=== PATIENT | female | born 1945 | race Caucasian/White ===

== ENCOUNTER 2017-04-19 18:25 | Observation (INO) | payer OTHER ==
[2017-04-19 18:37] VITALS: BMI 39.9
[2017-04-19] MEDS ORDERED: ASPIRIN 81 MG CHEWABLE TABLETS PO ONE ×2 (18:45→18:59)
--- NOTE | 2017-04-19 18:45 | PDOC ---
History of Present Illness - General Chief Complaint: Chest Pain Stated Complaint: CHEST PAIN Past History - Past Medical History Allergies/Adverse Reactions: Allergies Allergy/AdvReac Type Severity Reaction Status Date / Time No Known Allergies Allergy Verified 04/19/17 18:33 Home Medications: Ambulatory Orders Atorvastatin Ca [Lipitor] 80 mg PO DAILY 09/20/12 Metoprolol Tartrate [Lopressor -] 50 mg PO DAILY 09/20/12 Zolpidem Tartrate [Ambien] 10 mg PO HS 09/20/12 Aspirin [Aspirin EC] 81 mg PO DAILY 04/25/15 Gabapentin 300 mg PO DAILY 04/25/15 Hydrocodone/Acetaminophen [Vicodin 5-300 mg Tablet] 1 each PO PRN 04/25/15 Clopidogrel Bisulfate [Plavix -] 75 mg PO DAILY 12/31/15 Cancer: Yes (ANGINA) Cardiac Disorders: Yes (ANGINA) HTN: Yes Hypercholesterolemia: Yes - Surgical History Cardiac Surgery: Yes (CABG X 3, card stent) Orthopedic Surgery: (EUGENIO KNEE REPLACEMENT) - Immunization History Immunization Up to Date: Yes - Psycho/Social/Smoking Cessation Hx Anxiety: No Suicidal Ideation: No Smoking Status: No Smoking History: Never smoked Have you smoked in the past 12 months: No Number of Cigarettes Smoked Daily: 0 Information on smoking cessation initiated: No Hx Alcohol Use: No Drug/Substance Use Hx: No Substance Use Type: None Hx Substance Use Treatment: No *Physical Exam - Vital Signs Last Vital Signs Temp Pulse Resp BP Pulse Ox 98.0 F 59 L 18 177/87 100 04/19/17 18:34 04/19/17 18:34 04/19/17 18:34 04/19/17 18:34 04/19/17 18:34
--- NOTE | 2017-04-19 19:04 | PDOC ---
History of Present Illness <ShlomoWendy Jauqi - Last Filed: 04/19/17 23:00> - General History Source: Patient Exam Limitations: No Limitations <Leslie Lakhani - Last Filed: 04/19/17 23:18> - General Chief Complaint: Chest Pain Stated Complaint: CHEST PAIN Time Seen by Provider: 04/19/17 18:54 - History of Present Illness Initial Comments: 04/19/17 19:02 Patient is a 71 y.o. female with a PMH of CAD (s/p stent x2) and HTN who presents to our facility c/o a 4 day h/o intermittent, sharp chest pain that starts in her left arm and radiates across her trunk. Patient states the pain occurs daily at approximately 1:30 p.m. and is self-resolving. Patient denies any associated shortness of breath, diaphoresis, nausea or vomiting. (Leslie Lakhani) Past History <ShlomoMarcbillie Nails - Last Filed: 04/19/17 23:00> - Past Medical History Cancer: Yes (ANGINA) Cardiac Disorders: Yes (ANGINA) HTN: Yes Hypercholesterolemia: Yes - Surgical History Cardiac Surgery: Yes (CABG X 3, card stent) Orthopedic Surgery: (EUGENIO KNEE REPLACEMENT) - Immunization History Immunization Up to Date: Yes - Psycho/Social/Smoking Cessation Hx Anxiety: No Suicidal Ideation: No Smoking Status: No Smoking History: Never smoked Have you smoked in the past 12 months: No Number of Cigarettes Smoked Daily: 0 Information on smoking cessation initiated: No Hx Alcohol Use: No Drug/Substance Use Hx: No Substance Use Type: None Hx Substance Use Treatment: No <Leslie Lakhani - Last Filed: 04/19/17 23:18> - Past Medical History Allergies/Adverse Reactions: Allergies Allergy/AdvReac Type Severity Reaction Status Date / Time No Known Allergies Allergy Verified 04/19/17 18:33 Home Medications: Ambulatory Orders Atorvastatin Ca [Lipitor] 80 mg PO DAILY 09/20/12 Metoprolol Tartrate [Lopressor -] 50 mg PO BID 09/20/12 Zolpidem Tartrate [Ambien] 10 mg PO HS 09/20/12 Aspirin [Aspirin EC] 81 mg PO DAILY 04/25/15 Gabapentin 300 mg PO DAILY 04/25/15 Hydrocodone/Acetaminophen [Vicodin 5-300 mg Tablet] 1 each PO PRN 04/25/15 Clopidogrel Bisulfate [Plavix -] 75 mg PO DAILY 12/31/15 Review of Systems - Review of Systems Constitutional: Yes: Other (No fevers, chills, diaphoresis, unexplained weight loss) HEENTM: Yes: Other (No visual changes, hearing loss, tinnitus, or sore throat) Respiratory: Yes: Other (No cough, shortness of breath, hemoptysis or wheezing) Cardiac (ROS): Yes: Other ABD/GI: Yes: Other (No abdominal pain, constipation, diarrhea, rectal bleed) : Yes: Other (No dysuria, increased frequency, hematuria) Musculoskeletal: Yes: Other (No muscle pain, weakness, back pain, gout) Psychiatric: Yes: Other (No anxiety, depression, suidical ideation) <Leslie Lakhani - Last Filed: 04/19/17 23:18> - Vital Signs Last Vital Signs Temp Pulse Resp BP Pulse Ox 98.0 F 53 L 18 143/73 99 04/19/17 18:34 04/19/17 20:37 04/19/17 20:37 04/19/17 20:37 04/19/17 20:37 ED Treatment Course - LABORATORY CBC & Chemistry Diagram: 04/19/17 18:51 04/19/17 18:51 <Wendy Keenan - Last Filed: 04/19/17 23:00> - LABORATORY CBC & Chemistry Diagram: 04/19/17 18:51 04/19/17 18:51 <Leslie Lakhani - Last Filed: 04/19/17 23:18> - ADDITIONAL ORDERS Additional order review: Laboratory Results 04/19/17 04/19/17 04/19/17 18:51 18:51 18:51 INR Sodium 141 Potassium 3.5 Chloride 107 Carbon Dioxide 26 Anion Gap 8 BUN 22 H D Creatinine 0.9 D Creat Clearance w eGFR > 60 Random Glucose 85 D Calcium 8.9 Magnesium 2.0 Total Bilirubin 0.6 AST 17 D ALT 19 D Alkaline Phosphatase 86 D Creatine Kinase 92 Troponin I < 0.02 B-Natriuretic Peptide 250.93 H Total Protein 7.2 Albumin 3.8 Urine Color Straw Urine Appearance Clear Urine pH 6.0 Urine Protein Negative Urine Glucose (UA) Negative Urine Ketones Negative Urine Blood 2+ H Urine Nitrite Negative Urine Bilirubin Negative Urine Urobilinogen Negative Ur Leukocyte Esterase Trace H Urine RBC 2 Urine WBC 2 Ur Epithelial Cells Rare Urine Mucus Rare 04/19/17 18:51 INR 1.11 Sodium Potassium Chloride Carbon Dioxide Anion Gap BUN Creatinine Creat Clearance w eGFR Random Glucose Calcium Magnesium Total Bilirubin AST ALT Alkaline Phosphatase Creatine Kinase Troponin I B-Natriuretic Peptide Total Protein Albumin Urine Color Urine Appearance Urine pH Urine Protein Urine Glucose (UA) Urine Ketones Urine Blood Urine Nitrite Urine Bilirubin Urine Urobilinogen Ur Leukocyte Esterase Urine RBC Urine WBC Ur Epithelial Cells Urine Mucus 04/19/17 18:51 RBC 5.03 MCV 81.9 MCHC 33.3 RDW 13.9 MPV 7.8 Neutrophils % 67.9 Lymphocytes % 21.8 Monocytes % 8.3 Eosinophils % 1.3 Basophils % 0.7 - Medications Given in the ED: ED Medications Discontinued Medications Generic Name Dose Route Start Last Admin Trade Name Freq PRN Reason Stop Dose Admin Aspirin 162 mg 04/19/17 18:45 04/19/17 19:22 Asa - PO 04/19/17 18:46 162 mg ONCE ONE Administration Aspirin 162 mg 04/19/17 18:59 04/19/17 19:22 Asa - PO 04/19/17 19:00 Not Given ONCE ONE Medical Decision Making <Wendy Keenan - Last Filed: 04/19/17 23:00> <Leslie Lakhani - Last Filed: 04/19/17 23:18> - Medical Decision Making 04/19/17 22:45 Patient's EKG showed Sinus Bradycardia (HR 59 BPM) and Troponin was (-) x1. As patient had a recent positive stress test, a decision was made to admit to patient for telemetry on the observation inpatient medicine floor. (Leslie Lakhani) *DC/Admit/Observation/Transfer - Discharge Dispostion Admit: Yes <Wendy Keenan - Last Filed: 04/19/17 23:00> - Discharge Dispostion Admit: Yes <Leslie Lakhani - Last Filed: 04/19/17 23:18> Diagnosis at time of Disposition: Chest pain Qualifiers: Chest pain type: unspecified Qualified Code(s): R07.9 - Chest pain, unspecified - Discharge Dispostion Condition at time of disposition: Good Decision to Admit order Date/Time: Decision to Admit Order Category Date Time Status Decision to Admit to Hospital Routine Admission 04/19/17 21:03 Active - Referrals - Attestations Physician Attestion: 04/19/17 21:03 I, Dr. Leslie Lakhani, attest that this document has been prepared under my direction and personally reviewed by me in its entirety. I further attest, that it accurately reflects all work, treatment, procedures and medical decision -making performed by me. (Leslie Lakhani)
[2017-04-19] MEDS ORDERED: ASPIRIN 81 MG CHEWABLE TABLETS ONE (19:20)
[2017-04-19 19:21] LABS: BASOPHIL 0.7 % (0-2.0); EOSINOPHIL 1.3 % (0-4.5); MCH 27.3 pg (25.7-33.7); MCHC 33.3 g/dl (32.0-36.0); MEAN CELL VOLUME 81.9 fl (80-96); MEAN PLT VOLUME 7.8 fl (7.5-11.1); NEUTROPHILS 67.9 % (42.8-82.8); PLATELET COUNT 222 K/MM3 (134-434); RDW 13.9 % (11.6-15.6)
[2017-04-19 19:43] LABS: INR 1.11 (0.82-1.09); PROTHROMBIN TIME (PATIENT) 12.2 SEC (9.98-11.88)
[2017-04-19 19:45] LABS: ALBUMIN 3.8 g/dl (3.4-5.0); ANION GAP 8 (8-16); CALCIUM 8.9 mg/dL (8.5-10.1); CO2 26 mmol/L (21-32); CREATININE 0.9 mg/dL (0.55-1.02); GLUCOSE,RANDOM 85 mg/dL (74-106); SGOT/AST 17 U/L (15-37)
[2017-04-19 19:50] LABS: ALK PHOS 86 U/L (45-117); BILIRUBIN,TOTAL 0.6 mg/dL (0.2-1.0); SGPT/ALT 19 U/L (12-78); TOT PROT 7.2 g/dl (6.4-8.2); TROPONIN I < 0.02 ng/ml (0.00-0.05)
--- NOTE | 2017-04-19 21:43 | PN ---
Teaching Attending Note Name of Resident: Purvi Higuera ATTENDING PHYSICIAN STATEMENT I saw and evaluated the patient. I reviewed the resident's note and discussed the case with the resident. I agree with the resident's findings and plan as documented. SUBJECTIVE: 71 yo F with Pmhx of CAD s/p CABG, HTN obesity, and etoh abuse, who presents with chest pain which occurred at 1:30 p.m and went away in a few seconds. States this pain is NOT her anginal equivlent. Chest pain was midsternal and sharp and went away. Non-Radiating. No diaphoresis, nausea or vomiting. No current chest pain, pressure or shortness of breath. OBJECTIVE: Physical: VS: Vital Signs Period Temp Pulse Resp BP Sys/Espinal Pulse Ox Last 24 Hr 98.0 F 53-59 18-18 143-177/73-87 99-100 GEN: NAD HEENT:NCAT, PERRL CARD: RRR S1, S2 RESP: CTAB ABD: BSX4, NTD to palpation EXT: - C/C/E CBCD WBC 10.0 K/mm3 (4.0-10.0) 04/19/17 18:51 RBC 5.03 M/mm3 (3.60-5.2) 04/19/17 18:51 Hgb 13.7 GM/dL (10.7-15.3) 04/19/17 18:51 Hct 41.3 % (32.4-45.2) 04/19/17 18:51 MCV 81.9 fl (80-96) 04/19/17 18:51 MCHC 33.3 g/dl (32.0-36.0) 04/19/17 18:51 RDW 13.9 % (11.6-15.6) 04/19/17 18:51 Plt Count 222 K/MM3 (134-434) 04/19/17 18:51 MPV 7.8 fl (7.5-11.1) 04/19/17 18:51 CMP Sodium 141 mmol/L (136-145) 04/19/17 18:51 Potassium 3.5 mmol/L (3.5-5.1) 04/19/17 18:51 Chloride 107 mmol/L (98-107) 04/19/17 18:51 Carbon Dioxide 26 mmol/L (21-32) 04/19/17 18:51 Anion Gap 8 (8-16) 04/19/17 18:51 BUN 22 mg/dL (7-18) H D 04/19/17 18:51 Creatinine 0.9 mg/dL (0.55-1.02) D 04/19/17 18:51 Creat Clearance w eGFR > 60 (>60) 04/19/17 18:51 Random Glucose 85 mg/dL (74-106) D 04/19/17 18:51 Calcium 8.9 mg/dL (8.5-10.1) 04/19/17 18:51 Total Bilirubin 0.6 mg/dL (0.2-1.0) 04/19/17 18:51 AST 17 U/L (15-37) D 04/19/17 18:51 ALT 19 U/L (12-78) D 04/19/17 18:51 Alkaline Phosphatase 86 U/L (45-117) D 04/19/17 18:51 Total Protein 7.2 g/dl (6.4-8.2) 04/19/17 18:51 Albumin 3.8 g/dl (3.4-5.0) 04/19/17 18:51 CARDIAC ENZYMES Creatine Kinase 92 IU/L (26-192) 04/19/17 18:51 Troponin I < 0.02 ng/ml (0.00-0.05) 04/19/17 18:51 EKG:S agnie 59 CXR: HEART SCORE: 4 ASSESSMENT AND PLAN: 71 yo F with Pmhx of CAD s/p CABG, HTN obesity, and etoh abuse who presents with chest pain 1.) Chest Pain - Atypical - Trend Trop/EKG - Monitor on tele - FU CXR - Heart 4 - cardio consult - C/W home meds 2.) CAD S/P CABG - C/W home meds 3.) HTN - C.w home meds 4.) Dvt Ppx - Low Risk - SCD Place in observation Tele
--- NOTE | 2017-04-19 22:26 | HP ---
HISTORY OF PRESENT ILLNESS: Patient is a 71 year old female with a PMHx of CAD s/p stent x2 and HTN who reports a 3 day history of intermittent left sided chest pain radiating to the midsternal described as sharp in nature. Patient reports the pain is daily and occurs everyday before 14:00 and usually self resolves within thirty minutes. Denies any association PO intake. Otherwise, patient denies fever, chills, nausea, vomiting, shortness of breath, diaphoresis, abdominal pain, dysuria, hematuria. PHYSICAL EXAMINATION Vital Signs - 24 hr 04/19/17 04/19/17 18:34 20:37 Temperature 98.0 F Pulse Rate 59 L Pulse Rate [ 53 L Apical] Respiratory 18 18 Rate Blood Pressure 177/87 Blood Pressure 143/73 [Left Arm] O2 Sat by Pulse 100 99 Oximetry (%) GENERAL: Awake, alert, and fully oriented, in no acute distress. EYES: Sclera anicteric, conjunctiva clear. EARS, NOSE, THROAT: Oropharynx clear without exudates. Moist mucous membranes. NECK: Normal range of motion, supple without lymphadenopathy, JVD, or masses. LUNGS: Breath sounds equal, clear to auscultation bilaterally. No wheezes, and no crackles. No accessory muscle use. HEART: Bradycardic and regular rhythm, normal S1 and S2 without murmur, rub or gallop. ABDOMEN: Soft, nontender, not distended, normoactive bowel sounds, no guarding, no rebound, no masses. No hepatomegaly or splenomegaly. LOWER EXTREMITIES: No peripheral edema. Laboratory Results - last 24 hr 04/19/17 04/19/17 04/19/17 18:51 18:51 18:51 WBC 10.0 RBC 5.03 Hgb 13.7 Hct 41.3 MCV 81.9 MCH 27.3 MCHC 33.3 RDW 13.9 Plt Count 222 MPV 7.8 Neutrophils % 67.9 Lymphocytes % 21.8 Monocytes % 8.3 Eosinophils % 1.3 Basophils % 0.7 INR 1.11 Sodium 141 Potassium 3.5 Chloride 107 Carbon Dioxide 26 Anion Gap 8 BUN 22 H D Creatinine 0.9 D Creat Clearance w eGFR > 60 Random Glucose 85 D Calcium 8.9 Magnesium 2.0 Total Bilirubin 0.6 AST 17 D ALT 19 D Alkaline Phosphatase 86 D Creatine Kinase 92 Troponin I < 0.02 B-Natriuretic Peptide Total Protein 7.2 Albumin 3.8 ASSESSMENT/PLAN: Patient is a 71 year old female with a PMHx of CAD s/p stents x2, HTN, and obesity who presents for sharp chest pain the last 4 days. Patient was admitted for further monitoring and management. Atypical Chest Pain -HEART SCORE: 4 -Troponin negative x1, continue to trend with repeat EKG -EKG showed no ST elevations or changes. -Prior positive stress test 4 months ago -Continue Plavix, ASA, Statin, and Metoprolol -Cardiology consult placed CAD S/P stents x1- Continue home medications HTN- Controlled. Continue current home medications Prophylaxis- SCD's for DVT prophylaxis Disposition- OBS telemetry. Cardiac consult placed Case discussed with medical team and attending. Full H&P to follow. Visit type - Emergency Visit Emergency Visit: Yes ED Registration Date: 04/19/17 Care time: The patient presented to the Emergency Department on the above date and was hospitalized for further evaluation of their emergent condition. - New Patient This patient is new to me today: Yes Date on this admission: 04/20/17 - Critical Care Critical Care patient: No
[2017-04-19 22:37] LABS: URINE APPEARANCE CLEAR; URINE BILIRUBIN NEGATIVE (NEGATIVE); URINE COLOR STRAW; URINE GLUCOSE (UA) NEGATIVE (NEGATIVE); URINE KETONE NEGATIVE (NEGATIVE); URINE NITRITE NEGATIVE (NEGATIVE); URINE PROTEIN NEGATIVE (NEGATIVE); URINE UROBILINOGEN NEGATIVE E.U./dl (0.2-1.0)
[2017-04-19 22:39] LABS: URINE BLOOD 2+ (NEGATIVE); URINE LEUK ESTERASE TRACE (NEGATIVE)
--- NOTE | 2017-04-19 22:39 | PDOC ---
Attending Attestation - Resident Resident Name: Leslie Lakhani - HPI HPI: 04/19/17 22:39 71 yo female with chest pain - Physicial Exam PE: 04/19/17 22:39 [id number] 71 yo female lungs cta b/l cvr [id number] abd soft,no reobound,no guarding ext from neuro axox3 - Medical Decision Making 04/19/17 22:40 71 yo female with chest pain and h/i CAD,cardiac stent on plavix and aspirin. admitted to tele obs
[2017-04-19 22:40] LABS: URINE MUCUS RARE; URINE RBC 2 /hpf (0-3); URINE WBC 2 /hpf (3-5)
[2017-04-19] MEDS ORDERED: ZOLPIDEM TARTRATE 5 MG TABLET PO PRN (23:02)
--- NOTE | 2017-04-19 23:36 | HP ---
CHIEF COMPLAINT:Chest pain start in the left side of the chest and radiated to med sternal area. PCP: HISTORY OF PRESENT ILLNESS: 71 Yo female, with PMH of CAD, S/p CABG(Nov 2014)on Aspirin and plavix , HTN, HLD,Obesity,Etoch abuse, Arthritis who presented to the ED today with 3 days H/O sever sharp shooting chest pain, 9/10 in intensity. the pain starts in the left side of the chest and radiate to med sternal area, last less than a minute. The pain improved with deep breathing and Nitroglycerine 0.4 mg Sublingual,and not related to her position.she felt very week during the episode.She never had similiar pain before and it is different from the angina pain she had in 2014. she denies any orthopnea or dyspnia on excertion.She denies any cough, palpitations, headache, blurry vision, diaphoresis, N/V/D/C, she reports some acid reflux but she denies any urinary symptoms. ER course was notable for: (1)EKG showed Sinus Bradycardia (HR 59 BPM) and Troponin was (-) x1 (2)Aspirin, plavix, O2 2L, Statin. (3)CXR was ordered Recent Travel:NO PAST MEDICAL HISTORY: CAD, S/p CABG in 2014, HLD, HLD, Arthritis. PAST SURGICAL HISTORY: both knee replacement. Social History: Smoking:None Alcohol:None Drugs: None Family History:significant for HTN, heart diseases in both parents. Allergies No Known Allergies Allergy (Verified 04/19/17 18:33) HOME MEDICATIONS: Home Medications Medication Instructions Recorded Atorvastatin Ca [Lipitor] 80 mg PO DAILY 09/20/12 Metoprolol Tartrate [Lopressor -] 50 mg PO BID 09/20/12 Zolpidem Tartrate [Ambien] 10 mg PO HS 09/20/12 Aspirin [Aspirin EC] 81 mg PO DAILY 04/25/15 Gabapentin 300 mg PO DAILY 04/25/15 Hydrocodone/Acetaminophen [Vicodin 1 each PO PRN 04/25/15 5-300 mg Tablet] Clopidogrel Bisulfate [Plavix -] 75 mg PO DAILY 12/31/15 REVIEW OF SYSTEMS CONSTITUTIONAL: Absent:NO fever, chills, diaphoresis, +generalized weakness during pain episode , malaise, loss of appetite, weight change HEENT: Absent: NO rhinorrhea, nasal congestion, throat pain, throat swelling, difficulty swallowing, mouth swelling, ear pain, eye pain, visual changes CARDIOVASCULAR: Absent: + chest pain, syncope, palpitations, irregular heart rate, lightheadedness, trace peripheral edema RESPIRATORY: Absent:NO cough, shortness of breath, dyspnea with exertion, orthopnea, wheezing , stridor, hemoptysis GASTROINTESTINAL: Absent: abdominal pain, abdominal distension, nausea, vomiting, diarrhea, constipation, melena, hematochezia GENITOURINARY: Absent: dysuria, frequency, urgency, hesitancy, hematuria, flank pain, genital pain MUSCULOSKELETAL: Absent: myalgia, +arthralgia hands and legs, joint swelling, back pain, neck pain SKIN: Absent: rash, itching, pallor HEMATOLOGIC/IMMUNOLOGIC: Absent: easy bleeding, easy bruising, lymphadenopathy, frequent infections ENDOCRINE: Absent: unexplained weight gain, unexplained weight loss, heat intolerance, cold intolerance NEUROLOGIC: Absent: headache, focal weakness or paresthesias, dizziness, seizure, mental status changes, bladder or bowel incontinence PSYCHIATRIC: Absent: anxiety, depression, suicidal or homicidal ideation, hallucinations. PHYSICAL EXAMINATION Vital Signs - 24 hr 04/19/17 04/19/17 18:34 20:37 Temperature 98.0 F Pulse Rate 59 L Pulse Rate [ 53 L Apical] Respiratory 18 18 Rate Blood Pressure 177/87 Blood Pressure 143/73 [Left Arm] O2 Sat by Pulse 100 99 Oximetry (%) GENERAL: Awake, alert, and fully oriented, in no acute distress. HEAD: Normal with no signs of trauma. EYES: Pupils equal, round and reactive to light, extraocular movements intact, sclera anicteric, conjunctiva clear. No lid lag. EARS, NOSE, THROAT: Ears normal, nares patent, oropharynx clear without exudates. Moist mucous membranes. NECK: Normal range of motion, supple without lymphadenopathy, JVD, or masses. LUNGS: Breath sounds equal, clear to auscultation bilaterally. No wheezes, and no crackles. No accessory muscle use. HEART: Regular rate and rhythm, normal S1 and S2 without murmur, rub or gallop. ABDOMEN: Soft, nontender, not distended, normoactive bowel sounds, no guarding, no rebound, no masses. No hepatomegaly or splenomegaly. MUSCULOSKELETAL: Normal range of motion at all joints. bony deformities and tenderness in hands fingers and toes. No CVA tenderness. UPPER EXTREMITIES: 2+ pulses, warm, well-perfused. No cyanosis. No clubbing. Trace peripheral edema. LOWER EXTREMITIES: 2+ pulses, warm, well-perfused. No calf tenderness. Trace peripheral edema. NEUROLOGICAL: Cranial nerves II-XII intact. Normal speech. PSYCHIATRIC: Cooperative. Good eye contact. Appropriate mood and affect. SKIN: Warm, dry, normal turgor, no rashes or lesions noted, normal capillary refill. Laboratory Results - last 24 hr 04/19/17 04/19/17 04/19/17 18:51 18:51 18:51 WBC 10.0 RBC 5.03 Hgb 13.7 Hct 41.3 MCV 81.9 MCH 27.3 MCHC 33.3 RDW 13.9 Plt Count 222 MPV 7.8 Neutrophils % 67.9 Lymphocytes % 21.8 Monocytes % 8.3 Eosinophils % 1.3 Basophils % 0.7 INR 1.11 Sodium 141 Potassium 3.5 Chloride 107 Carbon Dioxide 26 Anion Gap 8 BUN 22 H D Creatinine 0.9 D Creat Clearance w eGFR > 60 Random Glucose 85 D Calcium 8.9 Magnesium 2.0 Total Bilirubin 0.6 AST 17 D ALT 19 D Alkaline Phosphatase 86 D Creatine Kinase 92 Troponin I < 0.02 B-Natriuretic Peptide Total Protein 7.2 Albumin 3.8 Urine Color Urine Appearance Urine pH Urine Protein Urine Glucose (UA) Urine Ketones Urine Blood Urine Nitrite Urine Bilirubin Urine Urobilinogen Ur Leukocyte Esterase Urine RBC Urine WBC Ur Epithelial Cells Urine Mucus 04/19/17 04/19/17 18:51 18:51 WBC RBC Hgb Hct MCV MCH MCHC RDW Plt Count MPV Neutrophils % Lymphocytes % Monocytes % Eosinophils % Basophils % INR Sodium Potassium Chloride Carbon Dioxide Anion Gap BUN Creatinine Creat Clearance w eGFR Random Glucose Calcium Magnesium Total Bilirubin AST ALT Alkaline Phosphatase Creatine Kinase Troponin I B-Natriuretic Peptide 250.93 H Total Protein Albumin Urine Color Straw Urine Appearance Clear Urine pH 6.0 Urine Protein Negative Urine Glucose (UA) Negative Urine Ketones Negative Urine Blood 2+ H Urine Nitrite Negative Urine Bilirubin Negative Urine Urobilinogen Negative Ur Leukocyte Esterase Trace H Urine RBC 2 Urine WBC 2 Ur Epithelial Cells Rare Urine Mucus Rare Troponin, BNP 04/19/17 04/19/17 18:51 18:51 Troponin I < 0.02 B-Natriuretic Peptide 250.93 H ASSESSMENT/PLAN: 71 Yo female, with PMH of CAD, S/p stent (Nov 2014)on Aspirin and plavix , HTN, HLD, Arthritis who presented to the ED today with 3 days H/O sever sharp shooting chest pain was admitted to telemetry for observation. 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 * Blood pressure monitoring * Vitals Q4H * O2 2L NC * Aspirine 126 once PO , continue with Aspirin 81 mg * Plavix 75 mg PO daily * Atorvastatin 80 mg po daily * Mtoprolol 50 mg, PO BID * * 2- HTN, chronic * 143/73 on admission * Left Arm BP 162/80, Right Arm BP 151/68 mmgh * monitor BP * Continue home med Metoprolol * low sodium diet * * 3- HLD, chronic: * Lipid paned were ordered * Continue home med : Atorvastatin 80 mg daily * patient education * low fat diet * regular exercise as tolerated * * 4- ACS s/p CABG * 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 7- Dispo : * Admit to telemetry for observation * patient is a full code * 8- Patient counceling * limited alcohol intake * exercise regularly as tolerated * improve sleeping habits. * avoid using drugs Visit type - Emergency Visit Emergency Visit: Yes ED Registration Date: 04/19/17 Care time: The patient presented to the Emergency Department on the above date and was hospitalized for further evaluation of their emergent condition. - New Patient This patient is new to me today: Yes Date on this admission: 04/20/17 - Critical Care Critical Care patient: No
[2017-04-20] MEDS ORDERED: ZOLPIDEM TARTRATE 5 MG TABLET PO PRN (00:26)
[2017-04-20 08:00] LABS: ANION GAP 9 (8-16); BASOPHIL 0.5 % (0-2.0); CALCIUM 8.5 mg/dL (8.5-10.1); CHOLESTEROL 156 mg/dL (50-200); CO2 28 mmol/L (21-32); CREATININE 0.6 mg/dL (0.55-1.02); EOSINOPHIL 2.4 % (0-4.5); GLUCOSE,RANDOM 88 mg/dL (74-106); MCH 27.9 pg (25.7-33.7); MCHC 34.3 g/dl (32.0-36.0); MEAN CELL VOLUME 81.5 fl (80-96); MEAN PLT VOLUME 7.7 fl (7.5-11.1); NEUTROPHILS 62.7 % (42.8-82.8); PLATELET COUNT 191 K/MM3 (134-434); RDW 14.5 % (11.6-15.6); WHITE BLOOD COUNT 8.1 K/mm3 (4.0-10.0)
[2017-04-20 08:10] LABS: LDL CHOLESTEROL (ONLY SJRH) 103 mg/dL (5-100); TROPONIN I < 0.02 ng/ml (0.00-0.05)
[2017-04-20 08:25] LABS: INR 1.08 (0.82-1.09); PROTHROMBIN TIME (PATIENT) 11.9 SEC (9.98-11.88)
[2017-04-20 08:28] LABS: ACTIVATED PTT 29.7 SECONDS (26.9-34.4)
[2017-04-20] MEDS ORDERED: METOPROLOL TARTRATE 50 MG TABLET (FP) PO SCH ×2 (10:00)
[2017-04-20] MEDS ORDERED: ASPIRIN COATED 81 MG TABLET.EC PO SCH ×2 (10:00)
[2017-04-20] MEDS ORDERED: GABAPENTIN 300 MG CAPSULE (FP) PO SCH (10:00)
[2017-04-20] MEDS ORDERED: CLOPIDOGREL BISULFATE 75 MG TABLET (FP) PO SCH ×2 (10:00)
--- NOTE | 2017-04-20 10:39 | CON.CARD ---
Consult Consult Specialty:: Cardiology Referred by:: Hospitalist Reason for Consultation:: Cardiac evaluation - History of Present Illness Chief Complaint: Chest pain History of Present Illness: Patient is a 71 year old female of descent with underlying history of coronary artery disease s/p PCI/stent and CABG (2 years ago) at [facility] followed by Dr. Govea (Magnetometer Operator) last saw her over a year ago, in addition, history of hypertension, hypercholesterolemia and osteoarthritis who presents with complaints of mid sternal chest discomfort described as pressure like intermittently. She denies any radiation of pain. She denies shortness of breath or palpitations. She denies paroxysmal nocturnal dyspnea or orthopnea. She denies fever or chills. She denies cough or expectorations. She denies headache or lightheadedness. She denies nausea, vomiting, diarrhea or abdominal pain. She states she saw Dr. Govea over a year ago and stress testing was done more than a year ago. Currently, patient remains asymptomatic and troponins were negative 3 sets. Cardiology consultation was called for further evaluation. - History Source History Provided By: Patient, Medical Record Limitations to Obtaining History: No Limitations - Past Medical History Cardio/Vascular: Yes: CAD, HTN, Hyperlipdemia Gastrointestinal: Yes: Other (fatty liver disease) Musculoskeletal: Yes: Osteoarthritis Endocrine: No: Diabetes Mellitus - Past Surgical History Past Surgical History: Yes: CABG, Joint Replacement (bilateral TKRs), Stent - Alcohol/Substance Use Hx Alcohol Use: Yes (Social) Number of Drinks Daily: 3 History of Substance Use: reports: None - Smoking History Smoking history: Former smoker Have you smoked in the past 12 months: No Aproximately how many cigarettes per day: 0 - Social History ADL: Independent Occupation: former employed as [employer] History of Recent Travel: No Home Medications - Allergies Allergies/Adverse Reactions: Allergies Allergy/AdvReac Type Severity Reaction Status Date / Time No Known Allergies Allergy Verified 04/19/17 18:33 - Home Medications Home Medications: Ambulatory Orders Atorvastatin Ca [Lipitor] 80 mg PO DAILY 09/20/12 Metoprolol Tartrate [Lopressor -] 50 mg PO BID 09/20/12 Zolpidem Tartrate [Ambien] 10 mg PO HS 09/20/12 Aspirin [Aspirin EC] 81 mg PO DAILY 04/25/15 Gabapentin 300 mg PO DAILY 04/25/15 Hydrocodone/Acetaminophen [Vicodin 5-300 mg Tablet] 1 each PO PRN 04/25/15 Clopidogrel Bisulfate [Plavix -] 75 mg PO DAILY 12/31/15 Family Disease History - Family Disease History Family Disease History: Other: Father (murder victim), Mother (stroke) Other Family History: History of CAD Review of Systems - Review of Systems Constitutional: denies: Chills, Fever Cardiovascular: reports: Chest Pain. denies: Palpitations, Shortness of Breath Respiratory: denies: Cough, Hemoptysis, Orthopnea, PND, SOB, SOB on Exertion Gastrointestinal: denies: Abdominal Pain, Constipation, Diarrhea, Melena, Nausea , Rectal Bleeding, Vomiting Genitourinary: denies: Dysuria Musculoskeletal: denies: Joint Pain Neurological: denies: Dizziness, Headache, Seizure, Syncope, Unsteady Gait, Weakness Vital Signs: Vital Signs Temperature 97.3 F L 04/20/17 06:00 Pulse Rate 54 L 04/20/17 06:00 Respiratory Rate 19 04/20/17 06:00 Blood Pressure 167/76 04/20/17 06:00 O2 Sat by Pulse Oximetry (%) 97 04/20/17 06:00 Neck: Yes: Supple Respiratory: Yes: CTA Bilaterally Gastrointestinal: Yes: Normal Bowel Sounds, Soft. No: Tenderness Cardiovascular: Yes: Regular Rate and Rhythm JVD: No Carotid Bruit: No PMI: Non-Displaced Heart Sounds: Yes: S1, S2 Murmur: No: Systolic Murmur, Diastolic Murmur Edema: No Neurological: Yes: WNL - Other Data Labs, Other Data: CBC, BMP 04/20/17 05:35 04/20/17 05:35 INR, PTT INR 1.08 (0.82-1.09) 04/20/17 05:35 Troponin, BNP 04/20/17 04/20/17 04/20/17 00:51 05:35 05:35 Troponin I < 0.02 < 0.02 Cancelled B-Natriuretic Peptide 211.16 H Laboratory Results - last 24 hr 04/19/17 04/19/17 04/19/17 18:51 18:51 18:51 WBC 10.0 RBC 5.03 Hgb 13.7 Hct 41.3 MCV 81.9 MCH 27.3 MCHC 33.3 RDW 13.9 Plt Count 222 MPV 7.8 Neutrophils % 67.9 Lymphocytes % 21.8 Monocytes % 8.3 Eosinophils % 1.3 Basophils % 0.7 INR 1.11 PTT (Actin FS) Sodium 141 Potassium 3.5 Chloride 107 Carbon Dioxide 26 Anion Gap 8 BUN 22 H D Creatinine 0.9 D Creat Clearance w eGFR > 60 Random Glucose 85 D Calcium 8.9 Magnesium 2.0 Total Bilirubin 0.6 AST 17 D ALT 19 D Alkaline Phosphatase 86 D Creatine Kinase 92 Troponin I < 0.02 B-Natriuretic Peptide Total Protein 7.2 Albumin 3.8 Triglycerides Cholesterol Total LDL Cholesterol HDL Cholesterol Urine Color Urine Appearance Urine pH Urine Protein Urine Glucose (UA) Urine Ketones Urine Blood Urine Nitrite Urine Bilirubin Urine Urobilinogen Ur Leukocyte Esterase Urine RBC Urine WBC Ur Epithelial Cells Urine Mucus 04/19/17 04/19/17 04/20/17 18:51 18:51 00:51 WBC RBC Hgb Hct MCV MCH MCHC RDW Plt Count MPV Neutrophils % Lymphocytes % Monocytes % Eosinophils % Basophils % INR PTT (Actin FS) Sodium Potassium Chloride Carbon Dioxide Anion Gap BUN Creatinine Creat Clearance w eGFR Random Glucose Calcium Magnesium Total Bilirubin AST ALT Alkaline Phosphatase Creatine Kinase Troponin I < 0.02 B-Natriuretic Peptide 250.93 H Total Protein Albumin Triglycerides Cholesterol Total LDL Cholesterol HDL Cholesterol Urine Color Straw Urine Appearance Clear Urine pH 6.0 Urine Protein Negative Urine Glucose (UA) Negative Urine Ketones Negative Urine Blood 2+ H Urine Nitrite Negative Urine Bilirubin Negative Urine Urobilinogen Negative Ur Leukocyte Esterase Trace H Urine RBC 2 Urine WBC 2 Ur Epithelial Cells Rare Urine Mucus Rare 04/20/17 04/20/17 04/20/17 05:35 05:35 05:35 WBC 8.1 RBC 5.04 Hgb 14.1 Hct 41.1 MCV 81.5 MCH 27.9 MCHC 34.3 RDW 14.5 Plt Count 191 MPV 7.7 Neutrophils % 62.7 Lymphocytes % 25.7 Monocytes % 8.7 Eosinophils % 2.4 D Basophils % 0.5 INR 1.08 PTT (Actin FS) 29.7 Sodium 142 Potassium 3.4 L Chloride 105 Carbon Dioxide 28 Anion Gap 9 BUN 18 Creatinine 0.6 D Creat Clearance w eGFR Random Glucose 88 Calcium 8.5 Magnesium Total Bilirubin AST ALT Alkaline Phosphatase Creatine Kinase 73 Troponin I < 0.02 B-Natriuretic Peptide 211.16 H Total Protein Albumin Triglycerides 114 Cholesterol 156 Total LDL Cholesterol 103 H HDL Cholesterol 40 Urine Color Urine Appearance Urine pH Urine Protein Urine Glucose (UA) Urine Ketones Urine Blood Urine Nitrite Urine Bilirubin Urine Urobilinogen Ur Leukocyte Esterase Urine RBC Urine WBC Ur Epithelial Cells Urine Mucus Sinus bradycardia with nonspecific ST abnormality, nonspecific intraventricular conduction Echo: Pending Imaging - Results Chest X-ray: Image Reviewed EKG: Report Reviewed Problem List - Problems (1) Chest pain Code(s): R07.9 - CHEST PAIN, UNSPECIFIED Qualifiers: Chest pain type: unspecified Qualified Code(s): R07.9 - Chest pain, unspecified (2) CAD (coronary artery disease) Code(s): I25.10 - ATHSCL HEART DISEASE OF [place] CORONARY ARTERY W/O ANG PCTRS Qualifiers: Coronary Disease-Associated Artery/Lesion type: [place] artery [place] vs. transplanted heart: [place] heart Associated angina: angina presence unspecified Qualified Code(s): I25.10 - Atherosclerotic heart disease of [place] coronary artery without angina pectoris (3) Hx of CABG Code(s): Z95.1 - PRESENCE OF AORTOCORONARY BYPASS GRAFT (4) History of percutaneous coronary intervention Code(s): Z98.890 - OTHER SPECIFIED POSTPROCEDURAL STATES (5) HTN (hypertension) Code(s): I10 - ESSENTIAL (PRIMARY) HYPERTENSION Qualifiers: Hypertension type: essential hypertension Qualified Code(s): I10 - Essential (primary) hypertension (6) Hypercholesterolemia Code(s): E78.00 - PURE HYPERCHOLESTEROLEMIA, UNSPECIFIED (7) Osteoarthritis Code(s): M19.90 - UNSPECIFIED OSTEOARTHRITIS, UNSPECIFIED SITE Qualifiers: Osteoarthritis location: knee Osteoarthritis type: primary Laterality: bilateral Qualified Code(s): M17.0 - Bilateral primary osteoarthritis of knee Assessment/Plan 1. Chest pain syndrome with underlying CAD s/p CABG, angina pectoris 2. Hypertension - not at goal 3. Hypercholesterolemia 4. DJD/osteoarthritis s/p bilateral knee replacement PLAN: 1. Serial cardiac enzymes are negative 2. Transthoracic echocardiopraphy to assess LV and valvular function 3. Consider nuclear myocardial perfusion imaging either as inpatient or as outpatient if patient remains chest pain free 4. Continue Metoprolol 50mg BID and add Amlodipine 5 mg once a day and uptitrate 5. Continue ASA +/- Plavix, but Plavix may be stopped in view of cardiac stents and/or revascularization more than a year ago. Patient does not appear to have any other peripheral vascular diseases 6. Continue Lipitor 80 mg once a day (LDL is not at goal). Consider Zetia 10 mg once a day to reach LDL goal of 70. If target goal is not reached with these measures, may also consider PCSK9 inhibitor. Follow fasting lipid panel Further plans are to follow PMD: Dr. Rajan Case Magnetometer Operator: Dr. Carly Mclaughlin MD
[2017-04-20] MEDS ORDERED: amLODIPine BESYLATE 5 MG TABLET (FP) PO SCH (11:00)
[2017-04-20] MEDS ORDERED: EZETIMIBE 10 MG TABLET (FP) PO SCH (11:00)
--- NOTE | 2017-04-20 11:56 | EKG ---
Test Reason : Blood Pressure : / mmHG Vent. Rate : 051 BPM Atrial Rate : 051 BPM P-R Int : 220 ms QRS Dur : 114 ms QT Int : 476 ms P-R-T Axes : 020 008 026 degrees QTc Int : 438 ms SINUS BRADYCARDIA WITH 1ST DEGREE A-V BLOCK CANNOT RULE OUT INFERIOR INFARCT (CITED ON OR BEFORE 25-APR-2015) BORDERLINE INTRAVENTRICULAR CONDUCTION DELAY WHEN COMPARED WITH ECG OF 31-DEC-2015 15:09, NO SIGNIFICANT CHANGE WAS FOUND Confirmed by JOB CONKLIN MD ([id number]) on 04/20/2017 11:55:35 AM Referred By: Dontae COLIN Confirmed By:JOB CONKLIN MD
--- NOTE | 2017-04-20 13:29 | PN ---
Teaching Attending Note Name of Resident: Jame Hutchison ATTENDING PHYSICIAN STATEMENT I saw and evaluated the patient. I reviewed the resident's note and discussed the case with the resident. I agree with the resident's findings and plan as documented. SUBJECTIVE: no chest pain , no acute events overnight on telemetry OBJECTIVE: Vital Signs Temperature 97.3 F L 04/20/17 06:00 Pulse Rate 54 L 04/20/17 06:00 Respiratory Rate 19 04/20/17 06:00 Blood Pressure 167/76 04/20/17 06:00 O2 Sat by Pulse Oximetry (%) 97 04/20/17 06:00 NECK: Normal range of motion, supple without lymphadenopathy, JVD, or masses. LUNGS: Breath sounds equal, clear to auscultation bilaterally. No wheezes, and no crackles. No accessory muscle use. HEART: Regular rate and rhythm, normal S1 and S2 without murmur, rub or gallop. ABDOMEN: Soft, nontender, not distended, normoactive bowel sounds, no guarding, no rebound, no masses. No hepatomegaly or splenomegaly. MUSCULOSKELETAL: Normal range of motion at all joints. bony deformities and tenderness in hands fingers and toes. No CVA tenderness. UPPER EXTREMITIES: 2+ pulses, warm, well-perfused. No cyanosis. No clubbing. Trace peripheral edema. LOWER EXTREMITIES: 2+ pulses, warm, well-perfused. No calf tenderness. Trace peripheral edema. CBC, BMP 04/20/17 05:35 04/20/17 05:35 ASSESSMENT AND PLAN: 1. Chest pain - atypical , however multiple risk factors . HEART score 5. Enzymes negative x 3 and no acute EKG /Telemetry events. Pain resolved. Needs stress test as outpatient. Return to ED if symptoms recur. 2. Hypokalemia - supplement PO 3. HTN - stable D/c home to follow up with cardiology within 1 week for stress test
[2017-04-20 14:22] VITALS: BP 155/63; PULSE 52; TEMP 98.6
--- NOTE | 2017-04-20 16:30 | DS ---
Physical Exam: SUBJECTIVE: Patient seen and examined No acute events overnight. Patient has no complaints this morning. OBJECTIVE: Vital Signs Period Temp Pulse Resp BP Sys/Espinal Pulse Ox Last 24 Hr 98.6 F 52 20-20 155/63 97 PHYSICAL EXAM GENERAL: Awake, alert, and fully oriented, in no acute distress. HEAD: Normal with no signs of trauma. EYES: Pupils equal, round and reactive to light, extraocular movements intact, sclera anicteric, conjunctiva clear. No lid lag. EARS, NOSE, THROAT: Ears normal, nares patent, oropharynx clear without exudates. Moist mucous membranes. NECK: Normal range of motion, supple without lymphadenopathy, JVD, or masses. LUNGS: Breath sounds equal, clear to auscultation bilaterally. No wheezes, and no crackles. No accessory muscle use. HEART: Regular rate and rhythm, normal S1 and S2 without murmur, rub or gallop. ABDOMEN: Soft, nontender, not distended, normoactive bowel sounds, no guarding, no rebound, no masses. No hepatomegaly or splenomegaly. MUSCULOSKELETAL: Normal range of motion at all joints. bony deformities and tenderness in MCP joints. No CVA tenderness. UPPER EXTREMITIES: 2+ pulses, warm, well-perfused. No cyanosis. No clubbing. Trace peripheral edema. LOWER EXTREMITIES: 2+ pulses, warm, well-perfused. No calf tenderness. Trace peripheral edema. NEUROLOGICAL: Cranial nerves II-XII intact. Normal speech. PSYCHIATRIC: Cooperative. Good eye contact. Appropriate mood and affect. SKIN: Warm, dry, normal turgor, no rashes or lesions noted, normal capillary refill. LABS Abnormal Lab Results 04/19/17 04/19/17 04/19/17 18:51 18:51 18:51 Potassium BUN 22 H D B-Natriuretic Peptide 250.93 H Total LDL Cholesterol Urine Blood 2+ H Ur Leukocyte Esterase Trace H 04/20/17 05:35 Potassium 3.4 L BUN B-Natriuretic Peptide 211.16 H Total LDL Cholesterol 103 H Urine Blood Ur Leukocyte Esterase HOSPITAL COURSE: 71 year old F with a PMH of CAD s/p CABG in Nov 2014 presented to the ED with 3 day history of chest pain. In the ED, patient had an EKG, which showed sinus bradycardia with first degree AV block. She also had a chest xray, which showed no acute pulmonary disease. Trops were negative x3 and she had a BNP of 250.93. Patient was admitted to telemetry for observation. While on telemetry, patient had no events and she remained free of chest pain. Cardiology evaluated her and recommended an echocardiogram, which was unremarkable. Cardiology added amlodipine 5mg PO daily and recommended nuclear perfusion scan to be done outpatient. They also recommended starting zetia 10 mg PO daily to reach a goal LDL of 70. Patient was discharged with instructions to follow up in 1 week with her PCP as well as her golf club weigher. Date of Admission:04/20/17 Date of Discharge: 04/20/17 Minutes to complete discharge: 30 Discharge Summary Reason For Visit: CHEST PAIN Current Active Problems Chest pain (Acute) CAD (coronary artery disease) (Chronic) HTN (hypertension) (Chronic) History of percutaneous coronary intervention (Chronic) Hx of CABG (Chronic) Hypercholesterolemia (Chronic) Osteoarthritis (Chronic) Condition: Good - Instructions Diet, Activity, Other Instructions: Consider nuclear myocardial perfusion imaging as outpatient. If you are unable to see within the next week, contact information for Dr. Mclaughlin has been provided. Please follow-up with a golf club weigher as soon as possible. Follow-up with Dr. Case (your primary care provider) within one week. Continue Metoprolol 50mg twice daily, Aspirin 81mg daily and Lipitor 80mg daily. You are being started on Amlodipine 5mg once a day. You may discontinue your Plavix now since your cardiac stents were placed more than one year ago or you can speak to your primary golf club weigher or Dr. Case before stopping. Also, discuss starting Zetia 10 mg once a day to reach LDL goal of 70 with your Shop Teacher or Dr. Case If your chest pain returns, you have trouble breathing or any new symptoms, return to the hospital. Referrals: Rajan Case MD [Primary Care Provider] - Isiah Mclaughlin MD [Staff Physician] - Disposition: HOME - Home Medications Comprehensive Discharge Medication List: Ambulatory Orders Atorvastatin Ca [Lipitor] 80 mg PO DAILY 09/20/12 Metoprolol Tartrate [Lopressor -] 50 mg PO BID 09/20/12 Zolpidem Tartrate [Ambien] 10 mg PO HS 09/20/12 Aspirin [Aspirin EC] 81 mg PO DAILY 04/25/15 Gabapentin 300 mg PO DAILY 04/25/15 Hydrocodone/Acetaminophen [Vicodin 5-300 mg Tablet] 1 each PO PRN 04/25/15 Amlodipine Besylate [Norvasc -] 5 mg PO DAILY #30 tablet 04/20/17 This patient is new to me today: Yes Date on this admission: 04/20/17 Emergency Visit: No Critical Care patient: No - Discharge Referral [facility]erred to [facility] Yes Physician Referral: Rajan Carbajal MD ([facility])
[2017-04-20] MEDS ORDERED: ATORVASTATIN CA 80 MG TABLET (FP) PO SCH ×2 (22:00)
--- NOTE | 2017-04-21 11:59 | EKG ---
Test Reason : Blood Pressure : / mmHG Vent. Rate : 059 BPM Atrial Rate : 059 BPM P-R Int : 192 ms QRS Dur : 122 ms QT Int : 428 ms P-R-T Axes : 022 013 013 degrees QTc Int : 423 ms SINUS BRADYCARDIA NON-SPECIFIC INTRA-VENTRICULAR CONDUCTION DELAY BORDERLINE ECG WHEN COMPARED WITH ECG OF 31-DEC-2015 15:09, NO SIGNIFICANT CHANGE WAS FOUND Confirmed by ROSALINDA HUTCHIOSN, ASHISH ([id number]) on 04/21/2017 11:58:46 AM Referred By: Confirmed By:ASHISH TELLEZ MD
== END 2017-04-20 18:07 | disposition home or self-care (01) ==
LOC: JER 18:25 → INTOOBSV 23:01 → UNDOADMOB 23:01 → JERBED 23:01 → J4W 04-20 01:30 → JERBED 04-20 01:30 → J4W 04-20 08:30
PROVIDERS: ADMIT Internal Medicine; ATTEND Internal Medicine
DX: R07.89 Other chest pain (principal); I10 Essential (primary) hypertension; I25.10 Atherosclerotic heart disease of native coronary artery without angina pectoris; E78.5 Hyperlipidemia, unspecified; E87.6 Hypokalemia; E66.9 Obesity, unspecified; F10.10 Alcohol abuse, uncomplicated; K76.0 Fatty (change of) liver, not elsewhere classified; M17.0 Bilateral primary osteoarthritis of knee; Z68.39 Body mass index [BMI] 39.0-39.9, adult; Z79.82 Long term (current) use of aspirin; Z95.1 Presence of aortocoronary bypass graft; Z95.5 Presence of coronary angioplasty implant and graft; Z96.653 Presence of artificial knee joint, bilateral; Z79.01 Long term (current) use of anticoagulants; Z98.890 Other specified postprocedural states
CPT/HCPCS: 36415; 71010-TC; 80048; 80053; 80061; 81003; 81015; 82550; 83036; 83721; 83735; 83880; 84484; 85025; 85610; 85730; 93005; 93010; 93306-TC; 99284-25; 99285-25; G0378

== ENCOUNTER 2018-11-23 11:37 | Emergency (ER) | payer OTHER ==
[2018-11-23 11:53] VITALS: BP 169/85; PULSE 65; TEMP 98.2; BMI 35.5
--- NOTE | 2018-11-23 14:29 | PDOC ---
History of Present Illness - General Chief Complaint: Injury Stated Complaint: FALL, RIB PAIN Time Seen by Provider: 11/23/18 14:13 History Source: Patient Exam Limitations: Clinical Condition - History of Present Illness Initial Comments: 11/23/18 14:27 Patient with no significant past medical historyPresent with complaint of left- sided lower rib pain status post slip and fall on ice yesterday hitting left lower rib on the curbside yesterday. Patient denies hitting head or loss of consciousness. Patient reported increased pain with deep breathing to left side of ribs Timing/Duration: 24 hours Past History - Past Medical History Allergies/Adverse Reactions: Allergies Allergy/AdvReac Type Severity Reaction Status Date / Time No Known Allergies Allergy Verified 11/23/18 11:53 Home Medications: Ambulatory Orders Atorvastatin Ca [Lipitor] 80 mg PO DAILY 09/20/12 Metoprolol Tartrate [Lopressor -] 50 mg PO BID 09/20/12 Zolpidem Tartrate [Ambien] 10 mg PO HS 09/20/12 Aspirin [Aspirin EC] 81 mg PO DAILY 04/25/15 Gabapentin 300 mg PO DAILY 04/25/15 Hydrocodone/Acetaminophen [Vicodin 5-300 mg Tablet] 1 each PO PRN 04/25/15 Amlodipine Besylate [Norvasc -] 5 mg PO DAILY #30 tablet 04/20/17 Meloxicam 15 mg PO DAILY PRN #20 tablet 11/23/18 Oxycodone HCl/Acetaminophen [Percocet 5-325 mg Tablet] 1 tab PO Q6H #5 tablet MDD 3 11/23/18 Cancer: Yes (ANGINA) Cardiac Disorders: Yes (ANGINA) COPD: No HTN: Yes Hypercholesterolemia: Yes - Surgical History Cardiac Surgery: Yes (CABG X 3, card stent) Orthopedic Surgery: (EUGENIO KNEE REPLACEMENT) - Immunization History Immunization Up to Date: Yes - Suicide/Smoking/Psychosocial Hx Smoking Status: No Smoking History: Never smoked Have you smoked in the past 12 months: No Number of Cigarettes Smoked Daily: 0 Information on smoking cessation initiated: No Hx Alcohol Use: No Drug/Substance Use Hx: No Substance Use Type: None Hx Substance Use Treatment: No Review of Systems - Review of Systems Able to Perform ROS?: Yes Is the patient limited Citizen Of [place] proficient: No Constitutional: No: Weakness HEENTM: No: Blurred Vision, Recent change in vision Respiratory: No: Cough, Shortness of Breath, SOB with Exertion, SOB at Rest, Hemoptysis Cardiac (ROS): No: Symptoms Reported, See HPI, Chest Pain, Edema, Irregular Heart Rate, Lightheadedness, Palpitations, Syncope, Chest Tightness, Other ABD/GI: No: Nausea, Vomiting, Abdominal cramping Musculoskeletal: Yes: See HPI, Muscle Pain (left lower ribs pain). No: Muscle Weakness Neurological: No: Headache, Numbness, Paresthesia, Dizziness All Other Systems: Reviewed and Negative *Physical Exam - Vital Signs Last Vital Signs Temp Pulse Resp BP Pulse Ox 98.2 F 65 18 169/85 97 11/23/18 11:49 11/23/18 11:49 11/23/18 11:49 11/23/18 11:49 11/23/18 11:49 - Physical Exam Comments: 11/23/18 14:31 GENERAL: Well developed, well nourished. Awake and alert. No acute distress. CARDIOVASCULAR: Regular rate and rhythm. No murmurs, rubs, or gallops. PULMONARY: No evidence of respiratory distress. Lungs clear to auscultation bilaterally. No wheezing, rales or rhonchi. ABDOMINAL: Soft. Non-tender. Non-distended. No rebound or guarding. No organomegaly. Normoactive bowel sounds MUSCULOSKELETAL : Moderate tenderness over lateral side of left lower rib for 10 -12 ribs. No ecchymosis or bruising to skin. No bony deformities SKIN: Warm and dry. NEUROLOGICAL: Alert, awake, appropriate. No motor deficits in the lower extremities. Gait is normal without ataxia. PSYCHIATRIC: Cooperative. Good eye contact. Appropriate mood and affect. General Appearance: Yes: Nourished, Appropriately Dressed. No: Apparent Distress Moderate Sedation - Procedure Monitoring Vital Signs: Procedure Monitoring Vital Signs Temperature 98.2 F 11/23/18 11:49 Pulse Rate 65 11/23/18 11:49 Respiratory Rate 18 11/23/18 11:49 Blood Pressure 169/85 11/23/18 11:49 O2 Sat by Pulse Oximetry (%) 97 11/23/18 11:49 ED Treatment Course - RADIOLOGY Radiology Studies Ordered: Category Date Time Status RIBS-LEFT SIDE [RAD] Stat Radiology 11/23/18 14:16 Ordered Medical Decision Making - Medical Decision Making 11/23/18 14:33 Patient with no significant past medical historyPresent with complaint of left- sided lower rib pain status post slip and fall on ice yesterday hitting left lower rib on the curbside yesterday. Patient denies hitting head or loss of consciousness. Exam significant for moderate tenderness over lateral side of left lower ribs over 10th to 12th ribs. rib series x-ray ordered to rule out fracture.. Symptoms likely rib contusion and patient will be discharged home on NSAIDs if negative fracture 11/23/18 15:16 X-ray shows no acute fracture of the ribs. Patient is stable for discharge on NSAIDs and hot compresses to left ribs *DC/Admit/Observation/Transfer Diagnosis at time of Disposition: Contusion of rib on left side Qualifiers: Encounter type: initial encounter Qualified Code(s): S20.212A - Contusion of left front wall of thorax, initial encounter - Discharge Dispostion Disposition: HOME Decision to Admit order: No - Prescriptions Prescriptions: Meloxicam 15 mg PO DAILY PRN #20 tablet PRN Reason: rib pain Oxycodone HCl/Acetaminophen [Percocet 5-325 mg Tablet] 1 tab PO Q6H #5 tablet MDD 3 - Referrals Referrals: Rajan Case MD [Primary Care Provider] - - Patient Instructions Printed Discharge Instructions: DI for Rib Contusion Additional Instructions: X-ray of the ribs shows no fracture. Take prescribed medication as needed for pain. Apply heat compresses to the ribs 2-3 times a day for 5-10 minutes as needed - Post Discharge Activity
== END 2018-11-23 15:18 | disposition home or self-care (01) ==
LOC: JERFT 11:37
DX: S20.212A Contusion of left front wall of thorax, initial encounter (principal); W00.0XXA Fall on same level due to ice and snow, initial encounter; Y93.89 Activity, other specified; Y92.89 Other specified places as the place of occurrence of the external cause
CPT/HCPCS: 71101-TC-LT-FY; 99281-25

== ENCOUNTER 2020-11-17 22:19 | Observation (INO) | payer OTHER ==
[2020-11-17 22:47] LABS: BASO % 0.4 % (0-2.0); EOS % 0.2 % (0-4.5); HEMATOCRIT 39.6 % (32.4-45.2); HEMOGLOBIN 13.3 GM/dL (10.7-15.3); LYMPH % 24.4 % (8-40); MCH 28.8 pg (25.7-33.7); MCHC 33.5 g/dl (32.0-36.0); MEAN CELL VOLUME 85.9 fl (80-96); MEAN PLT VOLUME 7.8 fl (7.5-11.1); MONO % 9.8 % (3.8-10.2); NEUT % 65.2 % (42.8-82.8); PLATELET COUNT 212 K/MM3 (134-434); RBC 4.61 M/mm3 (3.60-5.2); RDW 13.6 % (11.6-15.6); WHITE BLOOD COUNT 5.9 K/mm3 (4.0-10.0)
[2020-11-17] MEDS ORDERED: ASPIRIN 81 MG CHEWABLE TABLETS PO ONE (22:53)
[2020-11-17 22:55] LABS: INR 0.97 (0.83-1.09); PROTHROMBIN TIME (PATIENT) 11.7 SEC (9.7-13.0)
[2020-11-17 22:57] LABS: ACTIVATED PTT 27.7 SECONDS (25.2-36.5)
[2020-11-17] MEDS ORDERED: ASPIRIN 81 MG CHEWABLE TABLETS ONE (23:04)
[2020-11-17 23:07] LABS: CHLORIDE 103 mmol/L (98-107); POTASSIUM 3.7 mmol/L (3.5-5.1); SODIUM 138 mmol/L (136-145)
[2020-11-17 23:10] LABS: ALBUMIN 3.6 g/dl (3.4-5.0); ANION GAP 9 MMOL/L (8-16); BLOOD UREA NITROGEN 14.1 mg/dL (7-18); CALCIUM 8.5 mg/dL (8.5-10.1); CO2 26 mmol/L (21-32); GLUCOSE,RANDOM 102 mg/dL (74-106); MAGNESIUM 1.7 mg/dL (1.8-2.4)
[2020-11-17] MEDS ORDERED: MAGNESIUM SULF 50% (8.12 MEQ/2 ML-1 GM VIAL) IVPB ONE (23:11)
[2020-11-17 23:13] LABS: CREATININE 0.7 mg/dL (0.55-1.3); SGOT/AST 22 U/L (15-37); SGPT/ALT 20 U/L (13-61)
[2020-11-17 23:14] LABS: PHOSPHOROUS 2.4 mg/dL (2.5-4.9)
[2020-11-17] MEDS ORDERED: MAGNESIUM 1GM/D5W - 1 GM/100 ML IVPB IVPB ONE (23:14)
[2020-11-17 23:15] LABS: BILIRUBIN,TOTAL 0.9 mg/dL (0.2-1); TOT PROT 7.3 g/dl (6.4-8.2)
[2020-11-17 23:16] LABS: ALK PHOS 87 U/L (45-117)
[2020-11-17] MEDS: SODIUM CHLORIDE 1,000 ML IV SCH (23:33)
[2020-11-17 23:49] LABS: VENOUS BASE EXCESS 1.9 mmol/L (-2-2); VENOUS O2 SATURATION 54.5 % (70-80); VENOUS PCO2 44.8 mmHg (38-52); VENOUS PH 7.402 (7.310-7.410)
[2020-11-17 23:54] LABS: URINE APPEARANCE CLEAR; URINE BILIRUBIN NEGATIVE (NEGATIVE); URINE COLOR YELLOW; URINE GLUCOSE (UA) NEGATIVE (NEGATIVE); URINE KETONE NEGATIVE (NEGATIVE); URINE LEUK ESTERASE NEGATIVE (NEGATIVE); URINE NITRITE NEGATIVE (NEGATIVE); URINE PROTEIN TRACE (NEGATIVE)
[2020-11-17 23:54] LABS: BILIRUBIN,DIRECT 0.2 mg/dL (0.0-0.2)
[2020-11-17 23:55] LABS: LDH 227 U/L (84-246)
[2020-11-17 23:59] LABS: N-TERMINAL BNP 262.8 pg/ml (5-125)
[2020-11-18] MEDS ORDERED: MAGNESIUM SULF 50% (8.12 MEQ/2 ML-1 GM VIAL) IVPB ONE (00:01)
[2020-11-18] MEDS ORDERED: MAGNESIUM 1GM/D5W - 1 GM/100 ML IVPB IVPB ONE (02:22)
[2020-11-18] MEDS ORDERED: NAPH,MB-DB/K PH,MBDB POWDER PACKET PO ONE (03:30)
[2020-11-18] MEDS ORDERED: NAPH,MB-DB/K PH,MBDB POWDER PACKET ONE (03:49)
[2020-11-18] MEDS ORDERED: ZOLPIDEM TARTRATE 5 MG TABLET PO PRN (05:43)
[2020-11-18] MEDS ORDERED: ACETAMINOPHEN 325 MG TABLET (FP) PO PRN (05:53)
[2020-11-18] MEDS ORDERED: METOPROLOL TARTRATE 50 MG TABLET (FP) ONE (09:07)
[2020-11-18] MEDS ORDERED: PANTOPRAZOLE 40 MG TABLET ONE (09:07)
[2020-11-18] MEDS ORDERED: amLODIPine BESYLATE 5 MG TABLET (FP) ONE (09:07)
[2020-11-18] MEDS ORDERED: ENOXAPARIN NA (PORCINE) 40 MG/0.4 ML DISP.SYRIN SQ ONE (09:08)
[2020-11-18] MEDS ORDERED: GABAPENTIN 100 MG CAPSULE ONE (09:08)
[2020-11-18] MEDS: PANTOPRAZOLE 40 MG TABLET PO SCH (09:29)
[2020-11-18] MEDS: amLODIPine BESYLATE 5 MG TABLET (FP) PO SCH (09:29)
[2020-11-18] MEDS: GABAPENTIN 300 MG CAPSULE PO SCH (09:29)
[2020-11-18] MEDS: ENOXAPARIN NA (PORCINE) 40 MG/0.4 ML DISP.SYRIN SQ SCH (09:29)
[2020-11-18] MEDS: METOPROLOL TARTRATE 50 MG TABLET (FP) PO SCH (09:29)
[2020-11-18] MEDS ORDERED: ASPIRIN COATED 81 MG TABLET.EC PO SCH (10:00)
[2020-11-18] MEDS ORDERED: BAMLANIVIMAB 700 MG in SODIUM CHLORIDE 250 ML IVPB ONE (17:54)
[2020-11-18] MEDS ORDERED: ATORVASTATIN CA 80 MG TABLET (FP) ONE (21:00)
[2020-11-18] MEDS ORDERED: ZOLPIDEM TARTRATE 5 MG TABLET ONE (21:17)
[2020-11-18] MEDS ORDERED: ATORVASTATIN CA 80 MG TABLET (FP) PO SCH (22:00)
[2020-11-19] MEDS: SODIUM CHLORIDE 1,000 ML IV SCH (02:49)
[2020-11-19 03:39] VITALS: BMI 35.4
[2020-11-19 08:38] LABS: MAGNESIUM 2.2 mg/dL (1.8-2.4)
[2020-11-19 08:42] LABS: BASO % 0.2 % (0-2.0); EOS % 0.1 % (0-4.5); HEMATOCRIT 35.5 % (32.4-45.2); HEMOGLOBIN 12.2 GM/dL (10.7-15.3); MCHC 34.3 g/dl (32.0-36.0); MEAN CELL VOLUME 84.5 fl (80-96); MEAN PLT VOLUME 7.6 fl (7.5-11.1); MONO % 13.9 % (3.8-10.2); NEUT % 52.8 % (42.8-82.8); PLATELET COUNT 241 K/MM3 (134-434); RBC 4.21 M/mm3 (3.60-5.2); RDW 13.2 % (11.6-15.6); WHITE BLOOD COUNT 5.1 K/mm3 (4.0-10.0)
[2020-11-19] MEDS: METOPROLOL TARTRATE 50 MG TABLET (FP) PO SCH (09:25)
[2020-11-19] MEDS: GABAPENTIN 300 MG CAPSULE PO SCH (09:25)
[2020-11-19] MEDS: ENOXAPARIN NA (PORCINE) 40 MG/0.4 ML DISP.SYRIN SQ SCH (09:25)
[2020-11-19] MEDS: amLODIPine BESYLATE 5 MG TABLET (FP) PO SCH (09:25)
[2020-11-19] MEDS: PANTOPRAZOLE 40 MG TABLET PO SCH (09:25)
[2020-11-19 13:53] VITALS: BP 136/72; PULSE 68; TEMP 97.8
== END 2020-11-19 16:54 | disposition home or self-care (01) ==
LOC: JER 22:19 → JERBED 23:32 → J4W 11-19 01:02 → J4S 11-19 02:20
PROVIDERS: ADMIT Internal Medicine; ATTEND Internal Medicine
PROC: 3E0337Z Introduction of Electrolytic and Water Balance Substance into Peripheral Vein, Percutaneous Approach (ICD-10-PCS; principal; 2020-11-17)
PROC: 3E033GC Introduction of Other Therapeutic Substance into Peripheral Vein, Percutaneous Approach (ICD-10-PCS; 2020-11-17)
PROC: 3E023GC Introduction of Other Therapeutic Substance into Muscle, Percutaneous Approach (ICD-10-PCS; 2020-11-17)
DX: U07.1 COVID-19 (principal); M62.81 Muscle weakness (generalized); R05 Cough; R00.1 Bradycardia, unspecified; I25.10 Atherosclerotic heart disease of native coronary artery without angina pectoris; I10 Essential (primary) hypertension; R53.83 Other fatigue; Z98.890 Other specified postprocedural states; Z95.1 Presence of aortocoronary bypass graft; E66.9 Obesity, unspecified; Z68.35 Body mass index [BMI] 35.0-35.9, adult; M17.0 Bilateral primary osteoarthritis of knee; E83.42 Hypomagnesemia; E78.00 Pure hypercholesterolemia, unspecified; M19.90 Unspecified osteoarthritis, unspecified site; Z95.5 Presence of coronary angioplasty implant and graft; Z96.653 Presence of artificial knee joint, bilateral; K76.0 Fatty (change of) liver, not elsewhere classified; R06.02 Shortness of breath; S20.212A Contusion of left front wall of thorax, initial encounter; X58.XXXA Exposure to other specified factors, initial encounter; Y93.89 Activity, other specified; Y92.89 Other specified places as the place of occurrence of the external cause
CPT/HCPCS: 36415; 71045-TC-FY; 71275-TC; 80053; 80061; 80307; 81003; 82248; 82550; 82728; 82803; 83036; 83605; 83615; 83721; 83735; 83880; 84100; 84443; 84484; 85025; 85379; 85610; 85730; 86140; 87086; 87804; 93005; 93010; 96365; 96372; 96375; 96376; 97116-GP; 97161-GP; 99285-25; C9803; G0378; M0239; Q0239; Q9967; U0003

== ENCOUNTER 2022-06-27 21:33 | Emergency (ER) | payer OTHER ==
[2022-06-27 21:53] VITALS: BMI 36.8
[2022-06-27] MEDS ORDERED: LIDOCAINE PATCH REMOVAL MC SCH (22:00)
[2022-06-27] MEDS ORDERED: LIDOCAINE 5% TOPICAL PATCH TP ONE (23:18)
[2022-06-27] MEDS ORDERED: LIDOCAINE 5% TOPICAL PATCH ONE (23:44)
[2022-06-28 02:00] LABS: BASO % 0.4 % (0-2.0); EOS % 1.5 % (0-4.5); HEMATOCRIT 38.1 % (32.4-45.2); HEMOGLOBIN 13.3 GM/dL (10.7-15.3); LYMPH % 18.4 % (8-40); MCH 30.1 pg (25.7-33.7); MCHC 34.9 g/dl (32.0-36.0); MEAN CELL VOLUME 86.2 fl (80-96); MEAN PLT VOLUME 7.2 fl (7.5-11.1); MONO % 8.6 % (3.8-10.2); NEUT % 71.1 % (42.8-82.8); PLATELET COUNT 293 10^3/uL (134-434); RBC 4.42 M/mm3 (3.60-5.2); RDW 13.6 % (11.6-15.6); WHITE BLOOD COUNT 10.1 K/mm3 (4.0-10.0)
[2022-06-28 02:09] LABS: INR 1.03 (0.83-1.09); PROTHROMBIN TIME (PATIENT) 11.9 SEC (9.7-13.0)
[2022-06-28 02:21] LABS: ALBUMIN 3.9 g/dl (3.4-5.0); CALCIUM 9.3 mg/dL (8.5-10.1)
[2022-06-28 02:23] LABS: BLOOD UREA NITROGEN 16.2 mg/dL (7-18)
[2022-06-28 02:26] LABS: CREATININE 0.7 mg/dL (0.55-1.3)
[2022-06-28 02:27] LABS: BILIRUBIN,TOTAL 0.8 mg/dL (0.2-1); TOT PROT 7.7 g/dl (6.4-8.2)
[2022-06-28 02:50] VITALS: BP 178/84; PULSE 69; RESP 18; TEMP 98.4
== END 2022-06-28 03:04 | disposition home or self-care (01) ==
LOC: JER 21:33
DX: R07.89 Other chest pain (principal)
CPT/HCPCS: 36415; 71250-TC; 80053; 82550; 84484; 85025; 85610; 93005; 93010; 93971-TC; 99285-25

== ENCOUNTER 2024-08-31 04:34 | Day surgery (SDC) | payer OTHER ==
[2024-08-31] MEDS ORDERED: ACETAMINOPHEN 500 MG TABLET (FP) PO PRN (09:26)
[2024-08-31 14:49] VITALS: BMI 35.6
[2024-08-31] MEDS: LIDOCAINE HCL 1% PRESERVATIVE FREE - 30ML VIAL IJ ONE (15:57)
[2024-08-31] MEDS: IOHEXOL 180 MG/1 ML ML IJ ONE (15:58)
[2024-08-31] MEDS: BUPIVACAINE HCL/PF 0.5% (5MG/ML) 10 ML VIAL IJ ONE (15:59)
[2024-08-31 16:24] VITALS: PULSE 62; TEMP 97.8
[2024-08-31 16:39] VITALS: BP 144/60; RESP 18
== END 2024-08-31 16:39 | disposition home or self-care (01) ==
LOC: JASU-SURG 04:34
PROVIDERS: ATTEND Pain Medicine Pain Medicine
PROC: 3E0U3BZ Introduction of Anesthetic Agent into Joints, Percutaneous Approach (ICD-10-PCS; 2024-08-31)
PROC: 3E0U33Z Introduction of Anti-inflammatory into Joints, Percutaneous Approach (ICD-10-PCS; principal; 2024-08-31 16:00)
DX: M16.12 Unilateral primary osteoarthritis, left hip (principal)
CPT/HCPCS: 76000-TC-FY

== ENCOUNTER 2025-03-08 05:22 | Day surgery (SDC) | payer OTHER ==
[2025-03-07 09:03] VITALS: BMI 35.6
[2025-03-08] MEDS ORDERED: ACETAMINOPHEN 500 MG TABLET (FP) PO PRN (08:35)
[2025-03-08 09:04] VITALS: RESP 18; TEMP 97.7
[2025-03-08] MEDS: LIDOCAINE HCL 1% PRESERVATIVE FREE - 30ML VIAL IJ ONE ×2 (10:12)
[2025-03-08 10:36] VITALS: BP 141/68; PULSE 72
== END 2025-03-08 11:25 | disposition home or self-care (01) ==
LOC: JASU-SURG 05:22
PROVIDERS: ATTEND Pain Medicine Pain Medicine
PROC: 01HY3MZ Insertion of Neurostimulator Lead into Peripheral Nerve, Percutaneous Approach (ICD-10-PCS; principal; 2025-03-08 09:45)
DX: G89.4 Chronic pain syndrome (principal); M70.62 Trochanteric bursitis, left hip; M25.552 Pain in left hip
CPT/HCPCS: 64555; C1778; 76000-TC-FY